=== PATIENT | female | born 1985 | race Caucasian/White ===

== ENCOUNTER 2017-09-26 05:07 | Emergency (ER) | payer MEDICAID ==
[~2017-09-26] VITALS: Ht 162.6 cm; Wt 104.3 kg
[~2017-09-26 05:07] MED LIST: ERYTHROMYCIN E3.5 G1 OPHTHALMIC; ZOFRAN4 MG PO; ZOLOFT100 MG
[2017-09-26 05:35] LABS: ABSOLUTE EOSINOPHILS 0.1 thou/uL (0.0-0.7); ABSOLUTE LYMPHOCYTES 1.8 thou/uL (0.8-5.3); ABSOLUTE MONOCYTES 0.6 thou/uL (0.0-1.2); ABSOLUTE NEUTROPHILS 3.4 thou/uL (1.6-8.1); BASOPHILS 0.5 %; EOSINOPHILS 1.8 %; HEMATOCRIT 39.2 % (37.0-47.0); HEMOGLOBIN 13.2 gm/dL (12.0-15.0); LYMPHOCYTES 30.6 %; MCHC 33.7 g/dL (28.0-37.0); MCV 86.2 fL (80.0-100.0); MPV 9.2 fl. (7.2-11.1); NUCLEATED RBCS 0 /100WBC; PLATELET COUNT* 282 thou/uL (150-400); POLYS 57.1 %; RBC 4.56 mil/uL (4.20-5.00); RDW-CV 13.6 % (10.5-14.5); WBC 5.9 thou/uL (4.0-11.0)
[2017-09-26 05:45] LABS: ANION GAP 7 mmol/L (7-16); BUN 16 mg/dL (7-18); CHLORIDE 107 mmol/L (98-107); CO2 28 mmol/L (21-32); CREATININE 0.8 mg/dL (0.6-1.3); GLUCOSE 110 mg/dL (70-99); POTASSIUM 3.6 mmol/L (3.5-5.1); SODIUM 142 mmol/L (136-145)
[2017-09-26 05:49] LABS: APTT 28.8 Seconds (25.0-31.3); INR 1.1; PROTIME 10.7 Seconds (9.20-11.50)
[2017-09-26 06:04] LABS: ALBUMIN 3.5 g/dL (3.4-5.0); ALKALINE PHOSPHATASE 59 U/L (46-116); CK-MB MASS < 0.5 ng/mL (<0.5-3.6); LIPASE 209 U/L (73-393); MAGNESIUM 1.8 mg/dL (1.8-2.4); NT-PRO BRAIN NAT PEPTIDE 18 pg/mL (<300); SGOT 22 U/L (15-37); SGPT 45 U/L (30-65); TOTAL BILIRUBIN 0.1 mg/dL (<0.1-1.0); TOTAL PROTEIN 7.7 g/dL (6.4-8.2); TROPONIN-I LEVEL <0.06 ng/mL (<0.06)
[2017-09-26 06:34] VITALS: BP 108/69
--- NOTE | 2017-09-26 13:56 | EKG ---
[place] [address] ELECTROCARDIOGRAM REPORT Name: DOUG CORDOBA Room: [facility]#: [id number] Admission: 09/26/17 Attend Phys: Discharge: 09/26/17 Date of : 87 Report #: [id number] THIS REPORT FOR: //name// [facility] ED Test Date: 2017-09-26 Test Time: 05:13:03 Pat Name: DOUG CORDOBA Department: Room: Gender: F Outside [employer]: MARYCARMEN : 1985 Requested By: Han Sullivan Order Number: [id number] MD: Shane Hitchcock Measurements Intervals [place] Rate: 74 P: 20 AR: 145 QRS: 40 QRSD: 113 T: 52 QT: 392 QTc: 435 Interpretive Statements Sinus rhythm Compared to ECG 07/27/2016 20:34:57 no significant changes noted. Electronically Signed On 09-26-2017 13:56:31 RN PEDIATRIC ICU by Shane Hitchcock [email or web address] <ELECTRONICALLY SIGNED> By: Shane Hitchcock MD, [facility] 09/26/17 [id number] 2 Shane Hitchcock MD, FACC /EPI
== END 2017-09-26 06:36 | disposition home or self-care (01) ==
LOC: M.ERS 05:07
PROVIDERS: Family Medicine
DX: R07.89 Other chest pain (principal); F41.9 Anxiety disorder, unspecified; F10.99 Alcohol use, unspecified with unspecified alcohol-induced disorder

== ENCOUNTER 2019-09-29 19:09 | Emergency (ER) | payer OTHER ==
[~2019-09-29] VITALS: Ht 160 cm; Wt 113.0 kg
[2019-09-29] MEDS ORDERED: TRAZODONE 150150 M1 PO (19:27)
[2019-09-29] MEDS ORDERED: ADDERALL 20 MG20 MG PO (19:27)
[2019-09-29] MEDS ORDERED: ZOLOFT25 MG PO (19:28)
[2019-09-29] MEDS ORDERED: PROAIR HFA8.5 GM INH (20:27)
[2019-09-29] MEDS ORDERED: PREDNISONE 10 M10 MG PO (20:27)
[2019-09-29 20:41] VITALS: BP 111/64
== END 2019-09-29 20:41 | disposition home or self-care (01) ==
LOC: M.ERS 19:09
DX: J45.901 Unspecified asthma with (acute) exacerbation (principal); G89.29 Other chronic pain